=== PATIENT | female | born 1965 | race Caucasian/White ===

== ENCOUNTER 2016-08-18 09:37 | Day surgery (SDC) | payer OTHER ==
[~2016-08-18] VITALS: Ht 154.9 cm; Wt 62.9 kg
[2016-08-18 10:17] VITALS: Ht 154.9 cm; Wt 62.9 kg
[2016-08-18] MEDS ORDERED: VITAMIN D PO (10:46)
[2016-08-18] MEDS ORDERED: GABAPENTIN PO (10:46)
[2016-08-18] MEDS ORDERED: FERROUS SULFATE PO (10:46)
[2016-08-18] MEDS ORDERED: GEMFIBROZIL PO (10:46)
[2016-08-18] MEDS ORDERED: JANUMET PO (10:46)
[2016-08-18] MEDS ORDERED: [UNRECOGNIZED DRUG - OTHER] PO (10:46)
[2016-08-18] MEDS ORDERED: HYDROCHLOROTHIAZIDE PO (10:46)
[2016-08-18] MEDS ORDERED: COLACE (10:46)
[2016-08-18] MEDS ORDERED: PENTOXIFYLLINE PO (10:46)
[2016-08-18] MEDS ORDERED: GLIMEPIRIDE PO (10:46)
[2016-08-18] MEDS ORDERED: CATOPRIL (10:46)
[2016-08-18] MEDS ORDERED: BACLOFEN PAL (10:46)
[2016-08-18 11:11] VITALS: BP 119/59; PULSE 79; RESP 12
[2016-08-18] MEDS ORDERED: MIDAZOLAM 1 MG/ML 2 ML INJ ONE (11:30)
[2016-08-18] MEDS ORDERED: PROPOFOL 20 ML ONE (11:30)
[2016-08-18] MEDS ORDERED: LIDOCAINE 2% (SDV) 5 ML INJ ONE (11:30)
[2016-08-18 12:25] VITALS: BP 118/68; PULSE 74; RESP 16
--- NOTE | 2016-08-18 18:53 | GILP ---
DATE OF PROCEDURE: 08/18/2016 INDICATION: A 51-year-old female undergoing this procedure for colon cancer screening. The risks o f the procedure, related and unrelated complications, anesthetic risks, alternatives discussed and i nformed consent was obtained. DESCRIPTION OF PROCEDURE: The patient was brought to the GI lab, sedated by ____. After obtaining sedation, scope was passed with much ease into rectum, advanced through sigmoid, de scending, transverse colon all the way into cecum. The right side of the colon was somewhat inadequ ate prep. Prep small lesions can be missed. Appendiceal orifice and IC valve identified. There was a diminutive polyp in the cecum successfully removed by jumbo biopsy forceps. Rest of the colon ap peared normal. Retroversion done, internal hemorrhoids identified. Scope was straightened out and removed with excellent patient tolerance. IMPRESSION 1. Diminutive polyp in the cecum, successfully removed. 2. Internal hemorrhoid. 3. Negative otherwise all the way into cecum. 4. Preparation on the right side was somewhat inadequate. 5. Clarity was otherwise good. PLAN: Review the histopathology. The patient is to stay on high fiber diet. If the polyp is known hyperplastic, then she needs colonoscopy in 5 years. Dictated By: REEMA QUESADA/ANGELINA Conf#: [id number] DID#: [id number] CC: REEMA COLE MD;*EndCC*
== END 2016-08-18 11:59 | disposition home or self-care (01) ==
LOC: GIL 09:37
PROVIDERS: ATTEND Internal Medicine Gastroenterology
DX: Z12.11 Encounter for screening for malignant neoplasm of colon (principal); K64.8 Other hemorrhoids; I10 Essential (primary) hypertension; E11.9 Type 2 diabetes mellitus without complications; E78.5 Hyperlipidemia, unspecified
CPT/HCPCS: 45380; 82962; 84703; J2250; Z7610